=== PATIENT | male | born 1940 | race Caucasian/White ===

== ENCOUNTER → 2020-07-16 11:04 | Outpatient (CLI) | payer MEDICARE, OTHER, SELFPAY ==
[2020-07-16 11:37] LABS: COVID19 -Nasal RAPID Negative (Negative)
== END ==
PROVIDERS: PCP Internal Medicine; Referring Provider Specialist; Visit Provider Specialist
DX: Z20.822 Contact with and (suspected) exposure to COVID-19 (principal)
CPT/HCPCS: 87635; C9803

== ENCOUNTER 2020-07-18 08:49 | Day surgery (SDC) | payer MEDICARE, OTHER, SELFPAY ==
--- NOTE | 2020-07-18 | PATH_ITS ---
[facility] Accession Number: [id number] . 01 Material submitted: . colon - POLYPS AT 15 CM . 01 Clinical history: . SDC . 02 Diagnosis: Colon Polyps at 15 cm, Biopsies: Fragment of tubular adenoma and fragments of hyperplastic polyp. MRV 07/22/2020 1038 Local . 02 Electronically signed: . Johan Gama MD, PhD, Pathologist NPI- [id number] . 01 Gross description: . The specimen is received in formalin, labeled polyp at 15 cm and consists of two farah-pink fragments of soft tissue, measuring 0.8 x 0.5 x 0.3 cm in aggregate. The specimen is entirely submitted in cassette A1. ([id number]) /[facility] 07/19/2020 1719 Local . 02 Pathologist provided ICD-10: D12.6, K63.5 . 02 CPT . 383781 Performed at: 01 [facility] [address], [place], [place] [id number] MD Nura Knowles MD Phone: [phone] Performed at: 02 [facility] [address] [place], [place] [id number] MD Dafne Shi MD Phone: [phone]
[2020-07-18 09:32] VITALS: BP 155/63; PULSE 60; RESP 16; TEMP 36.1; O2SAT 98; BMI 30.8
[2020-07-18] MEDS: LACTATED RINGERS 1,000 ML 125 ML IV (09:43)
--- NOTE | 2020-07-18 09:53 | PM.HP.1 ---
History of Present Illness History of Present Illness Date Patient Seen: 07/18/20 Time Patient Seen: 09:53 Chief complaint: SDC Narrative: The patient is a gentleman here for a ease screening colonoscopy. He has had polyps removed in the past. Last exam was about 5 years ago. No family history of colon cancer. Patient History Medical History Diabetes type 2, controlled Hyperlipidemia Hypertension Obstructive sleep apnea of adult Snoring Surgical History (Updated 07/18/20 @ 09:54 by Fracisco Hernandez MD) Status post appendectomy Family & Social History Social History: household members spouse lives independently Yes Tobacco & Substance use: Smoking Status Never smoker alcohol intake current alcohol intake frequency a few times a month Substance Use Type does not use Meds Home Medications and Allergies Home Medications Medication Instructions Recorded Confirmed Type benazepril 20 mg tablet 20 mg PO DAILY 12/28/17 07/18/20 History hydrochlorothiazide 25 mg tablet 25 mg PO DAILY 12/28/17 07/18/20 History insulin glargine 100 unit/mL (3 30 unit SUBCUT DAILY 12/28/17 07/18/20 History mL) subcutaneous pen rosuvastatin 20 mg tablet 20 mg PO DAILY 12/28/17 07/18/20 History Resmed Airsesne 10 CPAP #1 ea 01/09/19 07/18/20 History insulin aspart U-100 [Novolog 1 sliding scale dose SUBCUT 07/18/20 07/18/20 History U-100 Insulin aspart] USEASDIRECTD Allergies Allergy/AdvReac Type Severity Reaction Status Date / Time No Known Drug Allergies Allergy Verified 07/18/20 09:22 Review of Systems Review of Systems ROS: Yes All systems reviewed with the patient and are negative except as otherwise documented Exam Vital Signs (past 8 hours): - 07/18/20 09:32 Temperature 97 F L Pulse Rate 60 Respiratory Rate 16 Blood Pressure 155/63 H Pulse Oximetry 98 Oxygen Delivery Method Room Air Narrative Exam Narrative: Pleasant cooperative patient no apparent distress. Lungs are clear to auscultation. No rales or rhonchi. Heart regular rate and rhythm no murmur gallop. Abdomen is soft nontender without mass. No obvious hernias. Patient is alert and oriented x3. Assessment & Plan Assessment & Plan narrative: The patient for a screening colonoscopy. I have discussed the procedure with them. Risks of bleeding, perforation which would necessitate major operation, failure to find remove all lesions, the potential tattoo were all discussed. All questions were answered. They wished to proceed.
--- NOTE | 2020-07-18 10:34 | PM.PREOP ---
Pre-operative Note COVID-19 COVID-19 status: Negative Result date/Date tested (Pos, Neg/Pending): 07/17/20 Interval Note History & Physical reviewed/Exam performed by Physician: Yes Changes to H&P: No ASA Class (for procedural sedation): III
[2020-07-18] MEDS: MIDAZOLAM 5 MG/5 ML VIAL IV (11:07)
[2020-07-18] MEDS: fentaNYL 250 MCG/5 ML INJ IV (11:08)
--- NOTE | 2020-07-18 11:09 | PM.OP.ENDO ---
Operative Date/Time/Diagnoses Date of procedure: 07/18/20 Time of procedure: 11:09 Pre-op diagnosis: Screening exam. History of polyps. Last exam 5 years ago. Post-op diagnosis: same (Two small polyps removed.) Procedure & Clinicians Study performed: Colonoscopy with cold biopsy Same procedure as scheduled: Yes Indications: Screening for colon cancer Surgeon: Fracisco Hernandez Procedure Notes SCOAP/Timeout: Performed Procedure in detail: The patient was placed in the left lateral decubitus position and underwent IV sedation directed by the surgeon consisting of fentanyl and Versed. Digital exam was unremarkable. Could not feel the prostate well.. The scope was inserted and advanced through the rectum into the sigmoid, descending, transverse, and ascending colon. Stiffener was inserted and pressure applied in order to reach the cecum.. The cecum was reached identified by the ileocecal valve and the appendiceal opening. The scope was gradually brought out. Two small Polyps were found at 15 cm from the anal verge. There were biopsied and removed.. The scope ultimately was retroflexed in the rectum. The appearance was normal. The scope was removed and the patient tolerated the procedure well. Prep was adequate Scope withdrawal time: 10 minutes(11.5 total) Sedation minutes: 33 Findings: polyp (Two small polyps) Specimen(s): other (Polyps) Complications: none Post-procedure Recommendations: Colonscopy in 5 years (If in good health.) Follow up: as needed Disposition: PACU
[2020-07-18 11:13] VITALS: BP 148/63; PULSE 64; RESP 16; TEMP 36.8; O2SAT 97
[2020-07-18 11:18] VITALS: BP 132/56; PULSE 72; RESP 14; O2SAT 95
[2020-07-18 11:23] VITALS: BP 137/49; PULSE 60; RESP 11; O2SAT 96
[2020-07-18 11:28] VITALS: BP 125/63; PULSE 61; RESP 20; TEMP 36.3; O2SAT 95
[2020-07-18 11:38] VITALS: BP 126/55; PULSE 55; RESP 13; TEMP 36.3; O2SAT 95
== END 2020-07-18 11:53 | disposition home or self-care (01) ==
PROVIDERS: PCP Internal Medicine; Referring Provider Internal Medicine; Visit Provider Specialist
PROC: 0DJD8ZZ Inspection of Lower Intestinal Tract, Via Natural or Artificial Opening Endoscopic (ICD-10-PCS; CPT 45378; principal; 2020-07-18 10:00)
DX: Z12.11 Encounter for screening for malignant neoplasm of colon (principal); Z86.010 Personal history of colon polyps; E11.9 Type 2 diabetes mellitus without complications; E78.5 Hyperlipidemia, unspecified; I10 Essential (primary) hypertension; G47.33 Obstructive sleep apnea (adult) (pediatric); D12.6 Benign neoplasm of colon, unspecified
CPT/HCPCS: 45380; 99152; 99153; J2250; J3010

== ENCOUNTER → 2020-09-09 18:52 | Outpatient (ROUT) | payer MEDICARE, OTHER, SELFPAY ==
[2020-09-09 19:36] LABS: Add Manual Diff / Slide Review NO; Basophils Absolute Auto 0 /uL (0-100); Basophils Percent Auto 0.7 % (0-2); Eosinophils Absolute Auto 100 /uL (0-450); Eosinophils Percent Auto 2.1 % (2-4); Hematocrit 40.7 % (41-53); Hemoglobin 13.7 g/dL (13.5-17.5); Lymphocytes Absolute Auto 1600 /uL (1100-4500); Lymphocytes Percent Auto 28.5 % (25-40); Mean Corpuscular HGB Conc 33.7 % (30-36); Mean Corpuscular Hemoglobin 29.5 PG (26-34); Mean Corpuscular Volume 87.6 fL (80-100); Monocytes Absolute Auto 300 /uL (0-900); Monocytes Percent Auto 6.4 % (3-14); Neutrophils Absolute Auto 3400 /uL (1500-7000); Neutrophils Percent Auto 62.3 % (50-75); Platelet Count 160 X10^3/uL (150-400); Red Blood Cell Count 4.65 X10^6/uL (4.5-5.9); Red Cell Distribution Width 14.5 % (11.6-14.8); White Blood Cell Count 5.5 X10^3/uL (4.5-11.0)
[2020-09-09 19:50] LABS: Aspartate Aminotransferase 35 IU/L (17-59); BUN Creatinine Ratio 20.2 (6-22); Blood Urea Nitrogen 26 mg/dL (9-20); Calcium 9.6 mg/dL (8.4-10.2); Carbon Dioxide 30 mmol/L (22-32); Chloride 101 mmol/L (98-107); Cholesterol 152 mg/dL (140-199); Estimated Glomerular Filt Rate 53.9 mL/min (>60); Glucose 49 mg/dL (80-110); HDL Cholesterol 42 mg/dL (40-60); HEMOLYSIS < 15 (0-50); LDL Cholesterol Calculated 78 mg/dL (<100); Potassium 3.7 mmol/L (3.4-5.1); Sodium 137 mmol/L (137-145); Triglycerides 159 mg/dL (35-150)
[2020-09-09 20:20] LABS: Prostate Specific Antigen < 0.064 ng/mL (0.10-4.00)
== END ==
PROVIDERS: PCP Internal Medicine; Visit Provider Internal Medicine
DX: E78.2 Mixed hyperlipidemia (principal); I10 Essential (primary) hypertension; Z85.46 Personal history of malignant neoplasm of prostate
CPT/HCPCS: 80048; 80061; 84153; 84450; 85025

== ENCOUNTER → 2023-01-11 12:40 | Outpatient (CLI) | payer MEDICARE, OTHER, SELFPAY ==
[2023-01-11 13:24] LABS: HEMOLYSIS 16 (0-50); Iron 60 ug/dL (49-181)
[2023-01-11 13:26] LABS: Hematocrit 39.3 % (41-53); Hemoglobin 13.5 g/dL (13.5-17.5); Mean Corpuscular HGB Conc 34.3 % (30-36); Mean Corpuscular Hemoglobin 29.8 PG (26-34); Mean Corpuscular Volume 87.1 fL (80-100); Platelet Count 168 X10^3/uL (150-400); Red Blood Cell Count 4.51 X10^6/uL (4.5-5.9); Red Cell Distribution Width 13.4 % (11.6-14.8); White Blood Cell Count 4.2 X10^3/uL (4.5-11.0)
[2023-01-11 13:35] LABS: BUN Creatinine Ratio 22.4 (6-22); Blood Urea Nitrogen 30 mg/dL (9-20); Calcium 9.5 mg/dL (8.4-10.2); Carbon Dioxide 31 mmol/L (22-32); Chloride 101 mmol/L (98-107); Estimated Glomerular Filt Rate 54 mL/min (>60); Glucose 93 mg/dL (80-110); HEMOLYSIS < 15 (0-50); Potassium 3.8 mmol/L (3.4-5.1); Sodium 137 mmol/L (137-145)
[2023-01-11 13:37] LABS: Percent Iron Saturation 17 % (20-50); Total Iron Binding Capacity 351 ug/dL (261-462)
[2023-01-11 13:41] LABS: Transferrin 234 mg/dL (206-381)
[2023-01-11 13:59] LABS: Ferritin 53 ng/mL (18-464)
[2023-01-11 17:26] LABS: Creatinine Urine Random 33.5 mg/dL
[2023-01-11 17:27] LABS: Microalbumin Urine Random < 0.6 mg/dL (0-1.6)
[2023-01-11 17:53] LABS: Vitamin D 25 Hydroxy (D3) 64.1 ng/mL (30.0-100.0)
[2023-01-12 03:21] LABS: x Labcorp Estim. Avg Glu (eAG) 146 mg/dL (.); x Labcorp Hemoglobin A1c 6.7 % (4.8-5.6)
[2023-01-13 09:10] LABS: Calcium 9.3 mg/dL (8.6-10.2); Parathyroid Hormone, Intact 32 pg/mL (15-65)
== END ==
PROVIDERS: PCP Internal Medicine; Referring Provider Internal Medicine; Visit Provider Internal Medicine
DX: D64.9 Anemia, unspecified (principal); E55.9 Vitamin D deficiency, unspecified; I10 Essential (primary) hypertension; N18.31 Chronic kidney disease, stage 3a; E11.22 Type 2 diabetes mellitus with diabetic chronic kidney disease
CPT/HCPCS: 80048; 82043; 82306; 82310; 82570; 82728; 83036; 83540; 83550; 83970; 85027

== ENCOUNTER → 2023-05-04 10:46 | Outpatient (CLI) | payer MEDICARE, OTHER, SELFPAY ==
[2023-05-04 12:43] LABS: Hemoglobin A1C% w Est Avg Glu 6.6 % (4.0-6.0)
[2023-05-04 13:30] LABS: Alanine Aminotransferase 51 IU/L (<50); Albumin 4.3 g/dL (3.5-5.0); Albumin Globulin Ratio 1.8 (1.0-2.8); Alkaline Phosphatase 70 U/L (38-126); Aspartate Aminotransferase 49 IU/L (17-59); Bilirubin Total 0.8 mg/dL (0.2-1.3); Blood Urea Nitrogen 34 mg/dL (9-20); Calcium 9.8 mg/dL (8.4-10.2); Carbon Dioxide 28 mmol/L (22-32); Chloride 100 mmol/L (98-107); Estimated Glomerular Filt Rate 53 mL/min (>60); Globulin 2.4 g/dL (1.7-4.1); Glucose 118 mg/dL (80-110); HEMOLYSIS < 15 (0-50); Potassium 3.6 mmol/L (3.4-5.1); Sodium 137 mmol/L (137-145); Total Protein 6.7 g/dL (6.3-8.2)
[2023-05-04 13:53] LABS: Prostate Specific Antigen < 0.064 ng/mL (0.10-4.00)
[2023-05-04 13:55] LABS: TSH w/ Reflex to FT4 0.16 uIU/mL (0.47-4.68)
== END ==
PROVIDERS: PCP Internal Medicine; Referring Provider Internal Medicine; Visit Provider Internal Medicine
DX: E11.319 Type 2 diabetes mellitus with unspecified diabetic retinopathy without macular edema (principal); Z85.46 Personal history of malignant neoplasm of prostate; N18.31 Chronic kidney disease, stage 3a; E78.2 Mixed hyperlipidemia
CPT/HCPCS: 36415; 80053; 83036; 84153; 84439; 84443

== ENCOUNTER → 2023-08-09 12:26 | Outpatient (CLI) | payer MEDICARE, OTHER, SELFPAY ==
[2023-08-09 14:31] LABS: BUN Creatinine Ratio 21.1 (6-22); Blood Urea Nitrogen 30 mg/dL (9-20); Calcium 8.9 mg/dL (8.4-10.2); Carbon Dioxide 29 mmol/L (22-32); Chloride 102 mmol/L (98-107); Cholesterol 120 mg/dL (140-199); Estimated Glomerular Filt Rate 50 mL/min (>60); Glucose 111 mg/dL (80-110); HDL Cholesterol 42 mg/dL (40-60); HEMOLYSIS < 15 (0-50); LDL Cholesterol Calculated 65 mg/dL (<100); Potassium 4.2 mmol/L (3.4-5.1); Sodium 139 mmol/L (137-145); Triglycerides 64 mg/dL (35-150)
[2023-08-09 14:59] LABS: TSH w/ Reflex to FT4 1.76 uIU/mL (0.47-4.68)
[2023-08-10 07:27] LABS: x Labcorp Estim. Avg Glu (eAG) 148 mg/dL (.); x Labcorp Hemoglobin A1c 6.8 % (4.8-5.6)
== END ==
PROVIDERS: PCP Internal Medicine; Referring Provider Internal Medicine; Visit Provider Internal Medicine
DX: E11.22 Type 2 diabetes mellitus with diabetic chronic kidney disease (principal); E78.2 Mixed hyperlipidemia; N18.31 Chronic kidney disease, stage 3a
CPT/HCPCS: 36415; 80048; 80061; 83036; 84443

== ENCOUNTER → 2024-01-26 08:47 | Outpatient (CLI) | payer MEDICARE, OTHER, SELFPAY ==
[2024-01-26 09:21] LABS: Hemoglobin A1C% w Est Avg Glu 6.6 % (4.0-6.0)
[2024-01-26 09:27] LABS: BUN Creatinine Ratio 24.6 (6-22); Blood Urea Nitrogen 32 mg/dL (9-20); Calcium 9.1 mg/dL (8.4-10.2); Carbon Dioxide 28 mmol/L (22-32); Chloride 106 mmol/L (98-107); Estimated Glomerular Filt Rate 55 mL/min (>60); Glucose 113 mg/dL (80-110); HEMOLYSIS < 15 (0-50); Potassium 3.8 mmol/L (3.4-5.1); Sodium 141 mmol/L (137-145)
== END ==
PROVIDERS: PCP Internal Medicine; Referring Provider Internal Medicine; Visit Provider Internal Medicine
DX: E11.22 Type 2 diabetes mellitus with diabetic chronic kidney disease (principal); N18.31 Chronic kidney disease, stage 3a
CPT/HCPCS: 36415; 80048; 83036

== ENCOUNTER → 2024-05-15 09:23 | Outpatient (CLI) | payer MEDICARE, OTHER, SELFPAY ==
[2024-05-15 10:33] LABS: Aspartate Aminotransferase 61 IU/L (17-59); BUN Creatinine Ratio 27.3 (6-22); Blood Urea Nitrogen 39 mg/dL (9-20); Calcium 9.8 mg/dL (8.4-10.2); Carbon Dioxide 32 mmol/L (22-32); Chloride 104 mmol/L (98-107); Cholesterol 122 mg/dL (140-199); Estimated Glomerular Filt Rate 49 mL/min (>60); Glucose 73 mg/dL (80-110); HDL Cholesterol 47 mg/dL (40-60); HEMOLYSIS < 15 (0-50); LDL Cholesterol Calculated 58 mg/dL (<100); Potassium 3.8 mmol/L (3.4-5.1); Sodium 140 mmol/L (137-145); Triglycerides 86 mg/dL (35-150)
[2024-05-15 10:41] LABS: Hemoglobin A1C% w Est Avg Glu 6.5 % (4.0-6.0)
[2024-05-15 10:44] LABS: Creatinine Urine Random 95.29 mg/dL
[2024-05-15 10:49] LABS: Microalbumin Urine Random 1.6 mg/dL (0-1.6)
[2024-05-15 11:05] LABS: Prostate Specific Antigen 0.074 ng/mL (0.10-4.00)
== END ==
PROVIDERS: PCP Internal Medicine; Referring Provider Internal Medicine; Visit Provider Internal Medicine
DX: E11.319 Type 2 diabetes mellitus with unspecified diabetic retinopathy without macular edema (principal); E78.2 Mixed hyperlipidemia; Z85.46 Personal history of malignant neoplasm of prostate; E11.22 Type 2 diabetes mellitus with diabetic chronic kidney disease; Z79.4 Long term (current) use of insulin; E11.42 Type 2 diabetes mellitus with diabetic polyneuropathy; N18.31 Chronic kidney disease, stage 3a; B35.1 Tinea unguium; Z86.0100 Personal history of colon polyps, unspecified; I12.9 Hypertensive chronic kidney disease with stage 1 through stage 4 chronic kidney disease, or unspecified chronic kidney disease
CPT/HCPCS: 36415; 80048; 80061; 82043; 82570; 83036; 84153; 84450

== ENCOUNTER → 2024-11-27 11:10 | Outpatient (CLI) | payer MEDICARE, OTHER, SELFPAY ==
[2024-11-27 11:56] LABS: Hematocrit 41.2 % (41-53); Hemoglobin 13.7 g/dL (13.5-17.5); Mean Corpuscular HGB Conc 33.3 % (30-36); Mean Corpuscular Hemoglobin 30.5 PG (26-34); Mean Corpuscular Volume 91.7 fL (80-100); Platelet Count 160 X10^3/uL (150-400); Red Cell Distribution Width 14.1 % (11.6-14.8); White Blood Cell Count 4.1 X10^3/uL (4.5-11.0)
[2024-11-27 12:12] LABS: BUN Creatinine Ratio 20.5 (6-22); Blood Urea Nitrogen 24 mg/dL (9-20); Calcium 9.7 mg/dL (8.4-10.2); Carbon Dioxide 29 mmol/L (22-32); Chloride 104 mmol/L (98-107); Estimated Glomerular Filt Rate > 60 mL/min (>60); Glucose 148 mg/dL (70-99); HEMOLYSIS < 15 (0-50); Potassium 4.5 mmol/L (3.4-5.1); Sodium 139 mmol/L (137-145)
[2024-11-27 12:14] LABS: Hemoglobin A1C% w Est Avg Glu 6.3 % (4.0-6.0)
[2024-11-27 12:43] LABS: Prostate Specific Antigen < 0.064 ng/mL (0.10-4.00)
[2024-11-29 07:40] LABS: Calcium 9.7 mg/dL (8.6-10.2); Parathyroid Hormone, Intact 31 pg/mL (15-65)
== END ==
PROVIDERS: PCP Internal Medicine; Referring Provider Internal Medicine; Visit Provider Internal Medicine
DX: E11.22 Type 2 diabetes mellitus with diabetic chronic kidney disease (principal); N18.31 Chronic kidney disease, stage 3a; Z85.46 Personal history of malignant neoplasm of prostate
CPT/HCPCS: 36415; 80048; 82310; 83036; 83970; 84153; 85027